=== PATIENT | male | born 1980 | race Caucasian/White ===

== ENCOUNTER 2018-12-05 13:22 | Outpatient (RCR) | payer OTHER | END 2018-12-08 10:09 | disposition home or self-care (01) | LOC: WSOH 13:22 | DX: M54.5 Low back pain (principal); X50.0XXA Overexertion from strenuous movement or load, initial encounter; Y92.59 Other trade areas as the place of occurrence of the external cause; Y99.0 Civilian activity done for income or pay | CPT/HCPCS: J1885 ==

== ENCOUNTER 2019-06-15 13:00 | Outpatient (RCR) | payer OTHER | END 2019-07-10 13:17 | disposition home or self-care (01) | LOC: WSOH 13:00 | DX: M54.5 Low back pain (principal); M43.16 Spondylolisthesis, lumbar region; M54.16 Radiculopathy, lumbar region; X50.0XXA Overexertion from strenuous movement or load, initial encounter; Y93.89 Activity, other specified; Y92.59 Other trade areas as the place of occurrence of the external cause; Y99.0 Civilian activity done for income or pay | CPT/HCPCS: J1885 ==

== ENCOUNTER 2022-03-20 13:06 | Outpatient (RCR) | payer OTHER | END 2022-03-24 | disposition still patient (30) | LOC: WSOH | DX: M51.16 Intervertebral disc disorders with radiculopathy, lumbar region (principal); Y99.0 Civilian activity done for income or pay | CPT/HCPCS: J1885 ==

== ENCOUNTER 2022-04-11 15:11 | Outpatient (RCR) | payer OTHER | END 2022-04-24 | disposition home or self-care (01) | LOC: WSOH | DX: M51.16 Intervertebral disc disorders with radiculopathy, lumbar region (principal); Y99.0 Civilian activity done for income or pay ==

== ENCOUNTER 2022-05-02 15:00 | Outpatient (RCR) | payer OTHER | END 2022-05-24 | disposition home or self-care (01) | LOC: WSOH | DX: M51.16 Intervertebral disc disorders with radiculopathy, lumbar region (principal); Y99.0 Civilian activity done for income or pay ==